=== PATIENT | male | born 2000 | race American Indian/Alaskan Native ===

== ENCOUNTER 2019-06-04 22:47 | Emergency (ER) | payer SELFPAY ==
[2019-06-05] MEDS ORDERED: traMADol 50 MG TAB PO ONE (03:17)
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
[2019-06-05 04:05] VITALS: BP 119/78
== END 2019-06-05 04:33 | disposition home or self-care (01) ==
LOC: ED 22:47
DX: S16.1XXA Strain of muscle, fascia and tendon at neck level, initial encounter (principal); S46.912A Strain of unspecified muscle, fascia and tendon at shoulder and upper arm level, left arm, initial encounter; J45.909 Unspecified asthma, uncomplicated; Z79.899 Other long term (current) drug therapy; Z88.0 Allergy status to penicillin; X58.XXXA Exposure to other specified factors, initial encounter; Y93.9 Activity, unspecified; Y92.89 Other specified places as the place of occurrence of the external cause; Y99.8 Other external cause status
CPT/HCPCS: 99282